=== PATIENT | male | born 1970 | race Caucasian/White ===

== ENCOUNTER 2017-04-10 12:26 | Emergency (ER) | payer MEDICAID, SELFPAY | END 2017-04-10 13:49 | disposition home or self-care (01) | PROVIDERS: Emergency Provider Nurse Practitioner Family; Family Provider Emergency Medicine; Visit Provider Nurse Practitioner Family | DX: L02.416 Cutaneous abscess of left lower limb (principal); F17.210 Nicotine dependence, cigarettes, uncomplicated | CPT/HCPCS: 10060; 87070; 87077; 99201 ==

== ENCOUNTER → 2017-04-24 11:31 | Outpatient (REF) | payer MEDICAID, SELFPAY ==
[2017-04-24 19:15] LABS: Basophils # 0.1 K/mm3 (0-0.2); Basophils % 0.6 % (0.1-2.0); Eosinophils # 0.4 K/mm3 (0.0-0.4); Eosinophils % 2.9 % (0.1-12.0); Hemoglobin 16.4 g/dL (14.1-18.0); Lymphocytes # 1.9 K/mm3 (0.7-4.5); Lymphocytes % 13.7 K/mm3 (10-50); Mean Corpuscular HGB Conc 32.8 g/dL (31.8-35.4); Mean Corpuscular Hemoglobin 30.9 pg (27.0-31.2); Mean Corpuscular Volume 94.3 fl (80-94); Mean Platelet Volume 9.7 fl (7.4-10.4); Monocytes # 0.8 K/mm3 (0.1-1.0); Monocytes % 5.7 % (1.7-9.3); Neutrophils # 10.5 K/mm3 (1.8-7.8); Platelet Count 275 K/mm3 (142-424); Red Cell Distribution Width 12.3 % (11.5-17.5); White Blood Count 13.6 K/mm3 (4.8-10.8)
[2017-04-24 19:35] LABS: Alanine Aminotransferase 27 U/L (12-78); Albumin Level 3.9 gm/dL (3.4-5.0); Albumin/Globulin Ratio 1.3 (1.1-1.8); Alkaline Phosphatase 106 U/L (46-116); Anion Gap 13.6 mEq/L (5-15); Aspartate Amino Transferase 22 U/L (15-37); Bilirubin,Total 0.4 mg/dL (0.2-1.0); Blood Urea Nitrogen 15 mg/dL (7-18); Calcium 8.7 mg/dL (8.5-10.1); Carbon Dioxide 26 mmol/L (21.0-32.0); Chloride 104 mmol/L (98-107); Creatinine,Serum 0.95 mg/dL (0.70-1.30); Estimated Glomerular Filt Rate 85 ml/min (>60); GFR (African American) 103 ML/MIN (>60); Glucose 81 mg/dL (74-106); Potassium 4.6 mmoL/L (3.5-5.1); Sodium 139 mmol/L (136-145); Thyroid Stimulating Hormone 0.99 uIU/ml (0.358-3.740); Total Protein,Serum 6.9 gm/dL (6.4-8.2)
[2017-04-26 09:17] LABS: Hep A Ab, IgM Negative (Negative); Hepatitis B Core Antibody IgM Negative (Negative); Hepatitis B Surface Antigen Negative (Negative)
[2017-04-26 17:03] LABS: Hepatitis C Antibody <0.1 s/co ratio (0.0-0.9); Vitamin B12 350 pg/mL (232-1245)
[2017-04-28 21:07] LABS: 1,25-Dihydroxy, Vitamin D-2 <10 pg/mL (.)
[2017-04-28 22:09] LABS: 1,25 Dihydroxy Vitamin D 55 pg/mL (.); 1,25-Dihydroxy, Vitamin D-3 55 pg/mL (.)
== END ==
LOC: LAB 11:31
PROVIDERS: Visit Provider Nurse Practitioner Family
DX: Z00.01 Encounter for general adult medical examination with abnormal findings (principal); Z76.89 Persons encountering health services in other specified circumstances; L02.416 Cutaneous abscess of left lower limb
CPT/HCPCS: 80053; 80074; 82607; 82652; 84439; 84443; 85025

== ENCOUNTER → 2017-04-25 09:41 | Outpatient (CLI) | payer MEDICAID, SELFPAY ==
--- NOTE | 2017-04-25 09:46 | XR_ITS ---
XR knee LT 4V HISTORY: Pain, swelling and redness of the left knee ITS.REASON: left knee abscess ORDERING PHYSICIAN: Renetta Bustamante PATIENT AGE: 47 years COMPARISON: 08/10/2015 FINDINGS: There has been prior knee surgery with 2 anchor screws along the lower aspect of the patella. Well-circumscribed subcortical cystic changes are present at the tibial tuberosity. There is some minimal hypertrophic change along the inferior patella. These findings are similar when compared to the previous exam. There is some soft tissue swelling in the prepatellar region. No obvious soft tissue gas or new foreign body evident. No fracture or dislocation. There is minimal osteoarthritic change of the medial compartment. IMPRESSION: 1. Postsurgical changes of the patella and tibial tuberosity. 2. Soft tissue swelling in the prepatellar region inferiorly.
== END ==
PROVIDERS: PCP Nurse Practitioner Family; Visit Provider Nurse Practitioner Family
DX: L02.416 Cutaneous abscess of left lower limb (principal)
CPT/HCPCS: 73564

== ENCOUNTER 2017-04-30 11:04 | Emergency (ER) | payer MEDICAID, SELFPAY ==
--- NOTE | 2017-04-30 11:12 | XR_ITS ---
XR ankle RT min 3V HISTORY: Pain following injury ITS.REASON: ROLLED ANKLE ORDERING PHYSICIAN: Betty Dickinson PATIENT AGE: 47 years COMPARISON: None FINDINGS: No fracture or dislocation. No lytic or blastic change. There is normal mineralization.. The joint spaces are well-preserved. No significant degenerative/arthritic changes. No erosive changes evident. There is moderate soft tissue swelling laterally. IMPRESSION: Soft tissue swelling otherwise negative
[2017-04-30 11:26] VITALS: BP 138/98; PULSE 89; RESP 16; TEMP 36.9; O2SAT 98; BMI 24.3
--- NOTE | 2017-04-30 11:42 | HMH.EDUTC ---
[facility] [place]: Ankle sp[place] Qualifiers: Encounter type: initial encounter Involved ligament of ankle: other ligament Laterality: right Qualified Code(s): S93.491A - Sprain of other ligament of right ankle, initial encounter Disposition: Home, Self-Care Condition on Discharge: Good Instructions: DI for Ankle Sprain, How To Perform RICE (Rest, Ice, Compress, Elevate) Additional Instructions: *RICE, Rest the extremity, Ice 15-20 minutes 3-4 times daily, Compress- wear the jose alberto wrap as discussed as much as possible to help reduce swelling and pain, Elevate the extremity when at rest *Jose Alberto wrap is for support and help control swelling, use it except in the shower. Be sure that is not to tight but not to loose either *Elevate when resting *Ibuprofen 800mg every 6-8 hours as needed for pain an inflammation. If need something more can take Tylenol in between doses of Ibuprofen to help Immediately follow up for new or worsening of symptoms, or no noticeable improvement over the next 3-5 days Follow up with family doctor REturn if needed Prescriptions: Ibuprofen [Ibuprofen 800mg Tab] 800 mg PO Q8HP PRN #24 tab PRN Reason: Moderate Pain Referrals: Renetta Bustamante APRN [Primary Care Provider] - Ayush Yeager MD [Staff Physician] - Miles Armas MD [Staff Physician] - Ashley Dominguez DPM [Physician] - Time of Disposition: 12:02 Medical Decision Making - Medical Records Medical records reviewed: Yes: I reviewed the patient's medical records. Vital Signs: 04/30/17 11:26 Temperature 98.4 F Temperature Source Temporal Artery Scan Pulse Rate [Right Brachial] 89 Respiratory Rate 16 Blood Pressure [Right Arm] 138/98 Blood Pressure Mean [Right Arm] 111 Blood Pressure Source [Right Arm] Automatic Cuff Blood Pressure Position [Right Arm] Sitting 02 Sat by Pulse Oximetry 98 Oxygen Delivery Method Room Air Orders (Tests/Meds): ORDERS Category Date Time Status Ankle XR -Right minimum 3 Views [XR ankle RT min 3V] Exams 04/30/17 11:12 Ordered Stat - Radiology Data #1 Image(s): Ankle Image Reviewed: Yes I reviewed the patient's radiology image w/the ED provider Preliminary Findings: No Fracture Seen - Chaz Inquiry Pt receiving controlled substance: No Chaz was queried for this patient: No [facility] [place] - General Stated complaint: ao [id number] r ankle pain Mode of Arrival: Ambulatory Source of Information: Patient Limitations: No Limitations Description of Symptoms (Recalled from Triage Doc. by RN): C/O RT ANKLE PAIN AFTER ROLLING IT THIS AM HEENT Symptoms (Recalled from RN notes): No Resp Symptoms (Recalled from RN notes): No Skin Symptoms (Recalled from RN notes): No MS Symptoms (Recalled from RN notes): Yes (RT ANKLE PAIN) Functional Status (Recalled from RN notes): N/A - History of Present Illness Provider Complaint: Patient state that this morning he was walking on sidewalk that was covered in snow and ice when he slipped and rolled his ankle. States that as he fell he felt something in the ankle pop and then he began having pain and swelling State that he was worried that he may have fractured the ankle so he came in to get checked - Related Data Previous Rx's Medication Instructions Recorded sulfamethoxazole 800 1 tab PO BID 10 Days #20 tab 04/24/17 mg-trimethoprim 160 mg tablet Ibuprofen [Ibuprofen 800mg Tab] 800 mg PO Q8HP PRN #24 tab 04/30/17 Allergies Allergy/AdvReac Type Severity Reaction Status Date / Time No Known Allergies Allergy Verified 04/25/17 10:17 NKDA Allergy Unknown Uncoded 04/25/17 10:17 - Worker's Comp Is this a Worker's Comp case?: No [facility] History I have reviewed the patient's past medical history: Yes Medical History: Reports:: Hypertension Denies:: Cancer, Diabetes Mellitus Type 1, Diabetes Mellitus Type 2, MRSA Amputation: No Fractures: No - *Social History Smoking Status: Current every day smoker [employer]
--- NOTE | 2017-04-30 11:46 | ED_ITS ---
[facility] [place] Clinical Impression: Ankle sprain Qualifiers: Encounter type: initial encounter Involved ligament of ankle: other ligament Laterality: right Qualified Code(s): S93.491A - Sprain of other ligament of right ankle, initial encounter Disposition: Home, Self-Care Condition on Discharge: Good Instructions: DI for Ankle Sprain, How To Perform RICE (Rest, Ice, Compress, Elevate) Additional Instructions: *RICE, Rest the extremity, Ice 15-20 minutes 3-4 times daily, Compress- wear the jose alberto wrap as discussed as much as possible to help reduce swelling and pain, Elevate the extremity when at rest *Jose Alberto wrap is for support and help control swelling, use it except in the shower. Be sure that is not to tight but not to loose either *Elevate when resting *Ibuprofen 800mg every 6-8 hours as needed for pain an inflammation. If need something more can take Tylenol in between doses of Ibuprofen to help Immediately follow up for new or worsening of symptoms, or no noticeable improvement over the next 3-5 days Follow up with family doctor REturn if needed Prescriptions: Ibuprofen [Ibuprofen 800mg Tab] 800 mg PO Q8HP PRN #24 tab PRN Reason: Moderate Pain Referrals: Renetta Bustamante APRN [Primary Care Provider] - Ayush Yeager MD [Staff Physician] - Miles Armas MD [Staff Physician] - Ashley Dominguez DPM [Physician] - Time of Disposition: 12:02 Medical Decision Making - Medical Records Medical records reviewed: Yes: I reviewed the patient's medical records. Vital Signs: 04/30/17 11:26 Temperature 98.4 F Temperature Source Temporal Artery Scan Pulse Rate [Right Brachial] 89 Respiratory Rate 16 Blood Pressure [Right Arm] 138/98 Blood Pressure Mean [Right Arm] 111 Blood Pressure Source [Right Arm] Automatic Cuff Blood Pressure Position [Right Arm] Sitting 02 Sat by Pulse Oximetry 98 Oxygen Delivery Method Room Air Orders (Tests/Meds): ORDERS Category Date Time Status Ankle XR -Right minimum 3 Views [XR ankle RT min 3V] Exams 04/30/17 11:12 Ordered Stat - Radiology Data #1 Image(s): Ankle Image Reviewed: Yes I reviewed the patient's radiology image w/the ED provider Preliminary Findings: No Fracture Seen - Chaz Inquiry Pt receiving controlled substance: No Chaz was queried for this patient: No [facility] [place] - General Stated complaint: ao [id number] r ankle pain Mode of Arrival: Ambulatory Source of Information: Patient Limitations: No Limitations Description of Symptoms (Recalled from Triage Doc. by RN): C/O RT ANKLE PAIN AFTER ROLLING IT THIS AM HEENT Symptoms (Recalled from RN notes): No Resp Symptoms (Recalled from RN notes): No Skin Symptoms (Recalled from RN notes): No MS Symptoms (Recalled from RN notes): Yes (RT ANKLE PAIN) Functional Status (Recalled from RN notes): N/A - History of Present Illness Provider Complaint: Patient state that this morning he was walking on sidewalk that was covered in snow and ice when he slipped and rolled his ankle. States that as he fell he felt something in the ankle pop and then he began having pain and swelling State that he was worried that he may have fractured the ankle so he came in to get checked - Related Data Previous Rx's Medication Instructions Recorded sulfamethoxazole 800 1 tab PO BID 10 Days #20 tab 04/24/17 mg-trimethoprim 160 mg tablet Ib
[2017-04-30 11:58] VITALS: BP 138/98; PULSE 89; RESP 16; TEMP 36.9; O2SAT 98
== END 2017-04-30 12:05 | disposition home or self-care (01) ==
PROVIDERS: Emergency Provider Nurse Practitioner; Family Provider Emergency Medicine; PCP Nurse Practitioner Family
DX: S93.491A Sprain of other ligament of right ankle, initial encounter (principal); W00.0XXA Fall on same level due to ice and snow, initial encounter; Y92.480 Sidewalk as the place of occurrence of the external cause; I10 Essential (primary) hypertension
CPT/HCPCS: 73610; 99202; 99282